=== PATIENT | female | born 1990 | race Caucasian/White ===

== ENCOUNTER 2017-03-06 14:29 | Emergency (ER) | payer SELFPAY, OTHER ==
[2017-03-06 16:30] LABS: CONTROL LINE UCG INT CTR LINE PRESENT; URINE PREG TEST NEGATIVE (NEGATIVE)
[2017-03-06] MEDS: NS 1,000 ML IV (16:30)
[2017-03-06 16:36] LABS: APPEARANCE, URINE CLEAR (CLEAR); BACTERIA, URINE AUTO NEGATIVE (NEGATIVE); BILIRUBIN, URINE AUTO NEGATIVE (NEGATIVE); BLOOD, URINE BLOOD NEGATIVE (NEGATIVE); COLOR, URINE YELLOW (YELLOW); GLUCOSE, URINE (UA) AUTO NEGATIVE (NEGATIVE); KETONE, URINE AUTO NEGATIVE (NEGATIVE); LEUKOCYTE ESTERASE, URINE AUTO NEGATIVE (NEGATIVE); MUCUS, URINE SMALL (NEGATIVE); NITRITE, URINE AUTO NEGATIVE (NEGATIVE); PROTEIN, URINE AUTO NEGATIVE (NEGATIVE); RBC, URINE AUTO 2 /HPF (0-3); SPECIFIC GRAVITY URINE AUTO 1.019 (1.002-1.035); SQUAMOUS EPITHELIAL CELL UR AU 1 /HPF (0-6); WBC, URINE AUTO 0 /HPF (0-3)
[2017-03-06 17:06] LABS: BASO # 0.1 10^3/uL (0.0-0.2); BASO % 0.3 % (0.0-1.0); EOS # 0.3 10^3/uL (0.0-0.50); EOS % 1.9 % (0.0-3.0); HEMATOCRIT 39.6 % (36.0-47.0); HEMOGLOBIN 13.4 g/dl (12.0-16.0); IMMATURE GRANULOCYTE # 0.1 10^3/uL (0-0); IMMATURE GRANULOCYTE % 0.3 % (0-0); LYMPH # 2.3 10^3/uL (1.5-6.5); MEAN CORPUSCULAR HEMOGLOBIN 29.3 pg (27.0-33.0); MEAN CORPUSCULAR HGB CONC 33.8 g/dl (32.0-36.5); MEAN CORPUSCULAR VOLUME 86.5 fl (80.0-96.0); MONO # 0.9 10^3/uL (0.0-0.8); MONO % 5.8 % (0.0-5.0); NEUTROPHILS # 11.8 10^3/uL (1.8-7.7); NEUTROPHILS % 76.7 % (36.0-66.0); PLATELET COUNT, AUTOMATED 428 10^3/uL (150-450); RED BLOOD COUNT 4.58 10^6/uL (4.00-5.40); RED CELL DISTRIBUTION WIDTH 12.7 % (11.5-14.5); WHITE BLOOD COUNT 15.5 10^3/uL (4.0-10.0)
[2017-03-06 17:38] LABS: INR 0.94; PROTHROMBIN TIME 12.7 SECONDS (12.4-14.5)
[2017-03-06 17:42] LABS: ANION GAP 8 MEQ/L (8-16); BLOOD UREA NITROGEN 12 MG/DL (7-18); CARBON DIOXIDE LEVEL 24 MEQ/L (21-32); CHLORIDE LEVEL 108 MEQ/L (98-107); CREATININE FOR GFR 0.58 MG/DL (0.55-1.02); GLOMERULAR FILTRATION RATE > 60.0 (>60); GLUCOSE, FASTING 84 MG/DL (70-105); POTASSIUM SERUM 4.2 MEQ/L (3.5-5.1); SODIUM LEVEL 140 MEQ/L (136-145)
[2017-03-06] MEDS: IBUPROFEN 800 MG TAB PO (17:57)
== END 2017-03-06 18:09 | disposition home or self-care (01) ==
LOC: M ED 14:29
DX: N92.0 Excessive and frequent menstruation with regular cycle (principal); E28.2 Polycystic ovarian syndrome; F17.200 Nicotine dependence, unspecified, uncomplicated
CPT/HCPCS: 76856

== ENCOUNTER 2017-05-25 17:13 | Emergency (ER) | payer OTHER, SELFPAY ==
[2017-05-25 18:21] LABS: KETONE, URINE AUTO RFX 2+ mg/dL (NEGATIVE); LEUKOCYTE ESTERASE UR AUTO RFX NEGATIVE (NEGATIVE); MUCUS, URINE RFX SMALL (NEGATIVE); NITRITE, URINE AUTO RFX NEGATIVE (NEGATIVE); RBC, URINE AUTO RFX 1 /HPF (0-3); SPECIFIC GRAVITY UR AUTO RFX 1.021 (1.002-1.035); SQUAM EPITHELIAL CELL UR AURFX 3 /HPF (0-6); WBC, URINE AUTO RFX 1 /HPF (0-3)
== END 2017-05-25 19:33 | disposition home or self-care (01) ==
LOC: M ED 17:13
DX: E28.2 Polycystic ovarian syndrome (principal); N92.6 Irregular menstruation, unspecified; F17.210 Nicotine dependence, cigarettes, uncomplicated
CPT/HCPCS: 76856

== ENCOUNTER 2017-07-09 01:18 | Emergency (ER) | payer SELFPAY, OTHER ==
[2017-07-09] MEDS: NORCO, ANEXSIA 5/325MG TABLET (HYDROcodone/ACETAMINOPHEN) PO (02:11)
== END 2017-07-09 02:23 | disposition home or self-care (01) ==
LOC: M ED 01:18
DX: S93.402A Sprain of unspecified ligament of left ankle, initial encounter (principal); X50.1XXA Overexertion from prolonged static or awkward postures, initial encounter; Y92.099 Unspecified place in other non-institutional residence as the place of occurrence of the external cause; Y93.9 Activity, unspecified; Y99.9 Unspecified external cause status; E28.2 Polycystic ovarian syndrome; F17.200 Nicotine dependence, unspecified, uncomplicated
CPT/HCPCS: 73590

== ENCOUNTER 2018-02-16 00:56 | Emergency (ER) | payer SELFPAY ==
[~2018-02-16] VITALS: Ht 172.7 cm; Wt 84.1 kg
[2018-02-16 00:56] VITALS: BP 138/82
[~2018-02-16 00:56] MED LIST: IBUP-1022 PO; IBUP80TA PO
[2018-02-16 03:35] LABS: INFLUENZA A AMPLIFICATION NEGATIVE (NEGATIVE); INFLUENZA B AMPLIFICATION NEGATIVE (NEGATIVE)
--- NOTE | 2018-02-16 06:02 | REP ---
Clinical: Acute cough . Comparison: None . Technique: PA and lateral. Findings: The mediastinum and cardiac silhouette are normal. The lung lopez are clear and without acute consolidation, effusion, or pneumothorax. The skeletal structures are intact and normal. Impression: 1. No acute cardiopulmonary process. Electronically Signed by Don Maldonado MD 02/16/2018 05:54 A
== END 2018-02-16 04:08 | disposition home or self-care (01) ==
LOC: M ED 00:56
DX: J06.9 Acute upper respiratory infection, unspecified (principal); Z72.0 Tobacco use; Z12.10 Encounter for screening for malignant neoplasm of intestinal tract, unspecified

== ENCOUNTER 2018-10-02 12:33 | Emergency (ER) | payer OTHER, SELFPAY ==
[~2018-10-02] VITALS: Ht 172.7 cm; Wt 101.4 kg
[2018-10-02] MEDS ORDERED: PRENTAB9 PO (12:42)
[2018-10-02] MEDS ORDERED: MELA5CAP2 PO (12:42)
[2018-10-02 15:01] VITALS: BP 134/86
--- NOTE | 2018-10-02 16:45 | REP ---
FIRST TRIMESTER ULTRASOUND: Real-time sonographic evaluation of the gravid uterus is performed utilizing transabdominal and endovaginal technique. There is a single living intrauterine gestation. Estimated gestational age 6 weeks 1 day based on a crown rump length of 5 mm, EDC 05/27/2019. heart rate 118 beats per minute. There is no subchorionic hemorrhage. There is a septated right ovarian cyst approximately 4 cm in diameter. There is no evidence of ovarian torsion bilaterally. Electronically Signed by Jayme Cosby MD 10/03/2018 07:52 A
== END 2018-10-02 15:03 | disposition home or self-care (01) ==
LOC: M ED 12:33
DX: O26.891 Other specified pregnancy related conditions, first trimester (principal); R10.2 Pelvic and perineal pain; Z3A.01 Less than 8 weeks gestation of pregnancy; O99.281 Endocrine, nutritional and metabolic diseases complicating pregnancy, first trimester; E28.2 Polycystic ovarian syndrome; O99.331 Smoking (tobacco) complicating pregnancy, first trimester; F17.210 Nicotine dependence, cigarettes, uncomplicated

== ENCOUNTER → 2018-10-10 | Outpatient (REF) | payer OTHER ==
[~2018-10-10] MED LIST changes: +MELA5CAP2 PO; +PRENTAB9 PO
== END ==
LOC: M LAB REF 13:11
PROVIDERS: ATTEND Advanced Practice Midwife
DX: Z12.4 Encounter for screening for malignant neoplasm of cervix (principal)

== ENCOUNTER → 2018-10-17 | Outpatient (CLI) | payer OTHER ==
[2018-10-17 15:26] LABS: BASO % 0.3 % (0.0-1.0); EOS # 0.2 10^3/uL (0.0-0.50); EOS % 1.9 % (0.0-3.0); HEMATOCRIT 38.3 % (36.0-47.0); HEMOGLOBIN 13.2 g/dl (12.0-15.5); LYMPH # 1.7 10^3/uL (1.5-6.5); LYMPH % 17.6 % (24.0-44.0); MEAN CORPUSCULAR HEMOGLOBIN 29.7 pg (27.0-33.0); MEAN CORPUSCULAR HGB CONC 34.5 g/dl (32.0-36.5); MEAN CORPUSCULAR VOLUME 86.3 fl (80.0-96.0); MONO # 0.7 10^3/uL (0.0-0.8); MONO % 7.4 % (0.0-5.0); NEUTROPHILS # 6.9 10^3/uL (1.8-7.7); NEUTROPHILS % 72.6 % (36.0-66.0); PLATELET COUNT, AUTOMATED 443 10^3/uL (150-450); RED BLOOD COUNT 4.44 10^6/uL (4.00-5.40); WHITE BLOOD COUNT 9.5 10^3/uL (4.0-10.0)
[2018-10-17 15:56] LABS: FREE THYROXINE INDEX 2.7 % (1.3-4.8); T UPTAKE 28 % (30-39); THYROXINE (T4) 9.8 UG/DL (4.5-12.0)
[2018-10-17 16:05] LABS: HEMOGLOBIN A1c 5.5 %
[2018-10-18 10:18] LABS: RUBELLA IgG QUALITATIVE EQUIVOCAL (IMMUNE)
[2018-10-18 11:53] LABS: HEPATITIS C VIRUS ABY INDEX < 0.0 INDEX (<0.8)
[2018-10-18 11:55] LABS: HIV 1&2 SCREEN CENTAUR NEGATIVE (NEGATIVE)
== END ==
LOC: M LAB 14:22
PROVIDERS: ATTEND Advanced Practice Midwife
DX: Z34.01 Encounter for supervision of normal first pregnancy, first trimester (principal); Z3A.00 Weeks of gestation of pregnancy not specified

== ENCOUNTER → 2018-10-18 | Outpatient (CLI) | payer OTHER | LOC: M LAB 13:50 | PROVIDERS: ATTEND Advanced Practice Midwife | DX: Z34.01 Encounter for supervision of normal first pregnancy, first trimester (principal); Z3A.00 Weeks of gestation of pregnancy not specified ==

== ENCOUNTER 2018-11-02 23:35 | Emergency (ER) | payer OTHER ==
[~2018-11-02] VITALS: Ht 172.7 cm; Wt 100.0 kg
--- NOTE | 2018-11-03 02:01 | REPVR ---
EXAM: US First Trimester, Transabdominal EXAM DATE/TIME: 11/03/2018 1:18 AM CLINICAL HISTORY: 27 years old, female; complicated by abdominal or pelvic pain; Right lower quadrant; First trimester; Gestational age or lmp: 10w 5d; ; Additional info: R cyst pain TECHNIQUE: Imaging protocol: Real-time transabdominal obstetrical ultrasound of the maternal pelvis and a first trimester , less than 14 weeks 0 days, with image documentation. COMPARISON: US PELVIC NON-OB COMPLETE 05/25/2017 6:27 PM FINDINGS: GESTATION: Gestation: Gestational sac within the uterus with pole and 5 mm yolk sac. Heart rate: heartbeat 162 beats per minute. Placenta: Unremarkable. No subchorionic bleed. Amniotic fluid: Amniotic and chorionic fluid are normal for gestational age. BIOMETRY: Estimated gestational age: Mean sac size is 4.4 cm suggesting an age of 9 weeks 6 days. [place]-Rump length: The crown-rump length measures 4.4 cm suggesting an age of 11 weeks 2 days. MATERNAL: Uterus: The uterus measures 11.2 cm in its cephalocaudad dimension and 7.1 cm in its AP dimension. Cervix: Unremarkable. Right adnexa: The right ovary measures 2.3 x 5.3 x 3.6 cm and demonstrates arterial and venous blood flow and a septated cyst measuring 2.0 x 3.1 x 2.5 cm. Left adnexa: The left ovary measures 1.9 x 4.3 x 2.1 cm and demonstrates blood flow. Intraperitoneal: No intraperitoneal free fluid. IMPRESSION: 1. Single live intrauterine fetus with estimated age by crown-rump length of 11 weeks 2 days. 2. Septated right ovarian cyst measuring 2.0 x 3.1 x 2.5 cm. 3. Otherwise negative pelvic sonogram. Electronically signed by: Param Lucero On 11/03/2018 02:01:09 AM
[2018-11-03 02:14] VITALS: BP 155/86
== END 2018-11-03 02:16 | disposition home or self-care (01) ==
LOC: M ED 23:35
DX: O34.81 Maternal care for other abnormalities of pelvic organs, first trimester (principal); O99.341 Other mental disorders complicating pregnancy, first trimester; Z3A.11 11 weeks gestation of pregnancy; Z79.899 Other long term (current) drug therapy

== ENCOUNTER → 2018-11-11 | Outpatient (REF) | payer OTHER ==
[2018-11-11 15:03] LABS: CHLAMYDIA DNA AMPLIFICATION NEGATIVE (NEGATIVE); GC DNA AMPLIFICATION NEGATIVE (NEGATIVE)
== END ==
LOC: M LAB REF 13:04
PROVIDERS: ATTEND Advanced Practice Midwife
DX: Z34.00 Encounter for supervision of normal first pregnancy, unspecified trimester (principal)

== ENCOUNTER → 2021-02-25 | Outpatient (REF) | LOC: M LABSMTC 12:25 | PROVIDERS: ATTEND Pediatrics | DX: Z20.828 Contact with and (suspected) exposure to other viral communicable diseases (principal) ==

== ENCOUNTER → 2023-05-22 | Outpatient (CLI) | payer OTHER ==
[2023-05-22 15:45] LABS: THYROID STIMULATING HORMONE 1.567 uIU/ML (0.55-4.78); TOTAL 25(OH) VITAMIN D 18.4 NG/ML (20.0-100.0)
[2023-05-22 15:46] LABS: FOLATE 18.8 NG/ML (>5.4)
== END ==
LOC: M PLALAB 11:51
PROVIDERS: ATTEND Psychiatry & Neurology Child & Adolescent Psychiatry
DX: F32.9 Major depressive disorder, single episode, unspecified (principal); F43.23 Adjustment disorder with mixed anxiety and depressed mood; Z65.8 Other specified problems related to psychosocial circumstances

== ENCOUNTER 2024-02-27 20:06 | Emergency (ER) | payer OTHER ==
[~2024-02-27] VITALS: Ht 175.3 cm; Wt 105.8 kg
[2024-02-27 21:08] LABS: BASO # 0.1 10^3/uL (0.0-0.2); BASO % 0.5 % (0.0-1.0); EOS # 0.5 10^3/uL (0.0-0.5); HEMATOCRIT 40.6 % (36.0-47.0); HEMOGLOBIN 13.8 g/dl (12.0-15.5); LYMPH # 3.5 10^3/uL (1.5-5.0); LYMPH % 37.7 % (24.0-44.0); MEAN CORPUSCULAR HEMOGLOBIN 29.4 pg (27.0-33.0); MEAN CORPUSCULAR VOLUME 86.6 fl (80.0-96.0); MONO # 0.9 10^3/uL (0.0-0.8); MONO % 9.2 % (2.0-8.0); NEUTROPHILS # 4.4 10^3/uL (1.5-8.5); NEUTROPHILS % 47.3 % (36.0-66.0); PLATELET COUNT, AUTOMATED 530 10^3/uL (150-450); RED BLOOD COUNT 4.69 10^6/uL (4.00-5.40); WHITE BLOOD COUNT 9.3 10^3/uL (4.0-10.0)
[2024-02-27 21:30] LABS: LIPASE 42 U/L (12-53)
[2024-02-27 21:33] LABS: ALBUMIN 4.1 G/DL (3.2-5.2); ALKALINE PHOSPHATASE 69 U/L (35-104); ALT/SGPT 20 U/L (7.0-40); AST/SGOT 12 U/L (<34); BILIRUBIN,DIRECT < 0.1 MG/DL (<0.4); BILIRUBIN,TOTAL 0.2 MG/DL (0.3-1.2); BLOOD UREA NITROGEN 17 MG/DL (9-23); CALCIUM LEVEL 9.5 MG/DL (8.5-10.1); CARBON DIOXIDE LEVEL 28 MMOL/L (20-31); CHLORIDE LEVEL 107 MMOL/L (98-107); CREATININE FOR GFR 0.57 MG/DL (0.55-1.30); GLOMERULAR FILTRATION RATE > 60.0 (>60); GLUCOSE, FASTING 93 MG/DL (60-100); POTASSIUM SERUM 4.8 MMOL/L (3.5-5.1); SODIUM LEVEL 141 MMOL/L (136-145); TOTAL PROTEIN 7.2 G/DL (5.7-8.2)
[2024-02-27 21:40] LABS: HCG, SERUM QUALITATIVE NEGATIVE (NEGATIVE)
[2024-02-27 23:59] VITALS: TEMP 97.5; O2SAT 98
[2024-02-28 00:17] VITALS: BP 134/91
== END 2024-02-28 00:18 | disposition home or self-care (01) ==
LOC: M ED 20:06
DX: R10.2 Pelvic and perineal pain (principal); E28.2 Polycystic ovarian syndrome; F17.200 Nicotine dependence, unspecified, uncomplicated; Z79.899 Other long term (current) drug therapy; Z97.5 Presence of (intrauterine) contraceptive device

== ENCOUNTER → 2024-05-23 | Outpatient (REF) | payer OTHER ==
[2024-05-23 19:26] LABS: ALBUMIN 3.9 G/DL (3.2-5.2); ALKALINE PHOSPHATASE 73 U/L (35-104); ALT/SGPT 28 U/L (7.0-40); AST/SGOT 13 U/L (<34); BASO # 0.1 10^3/uL (0.0-0.2); BASO % 0.4 % (0.0-1.0); BILIRUBIN,TOTAL 0.3 MG/DL (0.3-1.2); BLOOD UREA NITROGEN 19 MG/DL (9-23); CALCIUM LEVEL 9.1 MG/DL (8.5-10.1); CARBON DIOXIDE LEVEL 26 MMOL/L (20-31); CHLORIDE LEVEL 106 MMOL/L (98-107); CHOLESTEROL LEVEL 203 MG/DL (<200); CHOLESTEROL RISK RATIO 4.47 (<5); CREATININE FOR GFR 0.49 MG/DL (0.55-1.30); EOS # 0.4 10^3/uL (0.0-0.5); EOS % 3.2 % (0.0-3.0); GLOMERULAR FILTRATION RATE > 60.0 (>60); GLUCOSE, FASTING 84 MG/DL (60-100); HDL CHOLESTEROL 45.4 MG/DL (>40); HEMATOCRIT 43.4 % (36.0-47.0); HEMOGLOBIN 14.5 g/dl (12.0-15.5); LDL CHOLESTEROL 102.6 MG/DL (<100); LYMPH # 2.2 10^3/uL (1.5-5.0); LYMPH % 17.1 % (24.0-44.0); MEAN CORPUSCULAR HEMOGLOBIN 28.9 pg (27.0-33.0); MEAN CORPUSCULAR HGB CONC 33.4 g/dl (32.0-36.5); MEAN CORPUSCULAR VOLUME 86.6 fl (80.0-96.0); MONO # 1.1 10^3/uL (0.0-0.8); MONO % 8.4 % (2.0-8.0); NEUTROPHILS % 70.5 % (36.0-66.0); NON-HDL-C 157.6 MG/DL; PLATELET COUNT, AUTOMATED 604 10^3/uL (150-450); POTASSIUM SERUM 4.4 MMOL/L (3.5-5.1); RED BLOOD COUNT 5.01 10^6/uL (4.00-5.40); SODIUM LEVEL 141 MMOL/L (136-145); TOTAL PROTEIN 7.2 G/DL (5.7-8.2); TRIGLYCERIDES LEVEL 275 MG/DL (<150); WHITE BLOOD COUNT 12.7 10^3/uL (4.0-10.0)
[2024-05-23 19:28] LABS: THYROID STIMULATING HORMONE 1.049 uIU/ML (0.55-4.78)
[2024-05-23 19:51] LABS: HEMOGLOBIN A1c 5.1 % (4.0-6.0)
== END ==
LOC: M LAB REF 17:41
PROVIDERS: ATTEND Nurse Practitioner Family
DX: R53.83 Other fatigue (principal); E66.9 Obesity, unspecified; Z11.9 Encounter for screening for infectious and parasitic diseases, unspecified

== ENCOUNTER → 2024-06-10 | Outpatient (REF) | payer OTHER ==
[2024-06-10 15:00] LABS: BASO # 0.1 10^3/uL (0.0-0.2); BASO % 0.5 % (0.0-1.0); C REACTIVE PROTEIN QUANTITATIV < 0.50 MG/DL (<1.0); EOS # 0.4 10^3/uL (0.0-0.5); EOS % 3.2 % (0.0-3.0); HEMATOCRIT 41.9 % (36.0-47.0); HEMOGLOBIN 14.1 g/dl (12.0-15.5); IRON (FE) 86 UG/DL (50-170); LYMPH # 2.9 10^3/uL (1.5-5.0); LYMPH % 22.2 % (24.0-44.0); MEAN CORPUSCULAR HEMOGLOBIN 29.1 pg (27.0-33.0); MEAN CORPUSCULAR HGB CONC 33.7 g/dl (32.0-36.5); MEAN CORPUSCULAR VOLUME 86.4 fl (80.0-96.0); MONO # 0.9 10^3/uL (0.0-0.8); MONO % 7.3 % (2.0-8.0); NEUTROPHILS # 8.5 10^3/uL (1.5-8.5); NEUTROPHILS % 66.2 % (36.0-66.0); PERCENT SATURATION 26.2 % (13.2-45.0); PLATELET COUNT, AUTOMATED 603 10^3/uL (150-450); RED BLOOD COUNT 4.85 10^6/uL (4.00-5.40); TOTAL IRON BINDING CAPACITY 328 UG/DL (250-425); WHITE BLOOD COUNT 12.9 10^3/uL (4.0-10.0)
[2024-06-10 15:03] LABS: FERRITIN 63.5 NG/ML (7.3-270.7)
[2024-06-10 15:07] LABS: ERYTHROCYTE SEDIMENTATION RATE 21 mm/hr (0-20)
== END ==
LOC: M LAB REF 14:28
PROVIDERS: ATTEND Nurse Practitioner Family
DX: D75.839 Thrombocytosis, unspecified (principal)

== ENCOUNTER → 2024-09-19 | Outpatient (REF) | payer OTHER ==
[2024-09-19 18:08] LABS: BASO # 0.1 10^3/uL (0.0-0.2); BASO % 0.6 % (0.0-1.0); EOS # 0.6 10^3/uL (0.0-0.5); EOS % 5.0 % (0.0-3.0); LYMPH # 2.4 10^3/uL (1.5-5.0); LYMPH % 21.0 % (24.0-44.0); MONO # 1.0 10^3/uL (0.0-0.8); MONO % 8.9 % (2.0-8.0); NEUTROPHILS # 7.3 10^3/uL (1.5-8.5); NEUTROPHILS % 64.1 % (36.0-66.0); PLATELET COUNT, AUTOMATED 563 10^3/uL (150-450)
== END ==
LOC: M LAB REF 17:16
PROVIDERS: ATTEND Nurse Practitioner Family
DX: D72.829 Elevated white blood cell count, unspecified (principal); E28.2 Polycystic ovarian syndrome

== ENCOUNTER → 2024-09-23 | Outpatient (CLI) | payer OTHER | LOC: M SLEEP HO 11:11 | PROVIDERS: ATTEND Nurse Practitioner Family | DX: G47.30 Sleep apnea, unspecified (principal); R06.83 Snoring ==

== ENCOUNTER → 2024-10-24 | Outpatient (REF) | payer OTHER ==
[~2024-10-24] MED LIST changes: -IBUP-1022 PO; +IBUP600T42 PO
[2024-10-24 16:41] LABS: BASO # 0.1 10^3/uL (0.0-0.2); BASO % 0.5 % (0.0-1.0); EOS # 0.4 10^3/uL (0.0-0.5); EOS % 3.4 % (0.0-3.0); LYMPH # 2.6 10^3/uL (1.5-5.0); LYMPH % 23.9 % (24.0-44.0); MONO # 0.9 10^3/uL (0.0-0.8); MONO % 8.5 % (2.0-8.0); NEUTROPHILS # 6.8 10^3/uL (1.5-8.5); NEUTROPHILS % 63.3 % (36.0-66.0); PLATELET COUNT, AUTOMATED 585 10^3/uL (150-450)
== END ==
LOC: M LAB REF 16:15
PROVIDERS: ATTEND Nurse Practitioner Family
DX: D72.829 Elevated white blood cell count, unspecified (principal)

== ENCOUNTER → 2025-01-23 | Outpatient (REF) | payer OTHER | LOC: M LAB REF 12:16 | PROVIDERS: ATTEND Physician Assistant | DX: B34.9 Viral infection, unspecified (principal) ==